=== PATIENT | female | born 1985 | race Caucasian/White ===

== ENCOUNTER 2017-10-06 16:10 | Emergency (ER) | payer OTHER ==
[~2017-10-06] VITALS: Ht 165.1 cm; Wt 83.9 kg
[~2017-10-06 16:10] MED LIST: ACYC800; CIPRSO RIGHTEYE; CLIN15SU PO; CODACE30 PO; CODACEE120 PO; IBUP800 PO; LEVFLO500 PO; NAPR375 PO; ONDA4ODT MM; OXYACE5T PO; PENVK500 PO; PROM25 PO; PROM25S PR; RXTRAM50 PO; TRAM50 PO; Verotin-Gr Cap1 EACH; [UNRECOGNIZED DRUG - MIXTURE]
[2017-10-06] MEDS ORDERED: Polytrim Eye Dr10 ML RIGHTEYE (16:29)
== END 2017-10-06 16:40 | disposition home or self-care (01) ==
LOC: ER 16:10
DX: H10.9 Unspecified conjunctivitis (principal); F17.200 Nicotine dependence, unspecified, uncomplicated
CPT/HCPCS: 99282

== ENCOUNTER 2017-10-31 11:08 | Emergency (ER) | payer OTHER ==
[~2017-10-31] VITALS: Ht 165.1 cm; Wt 83.9 kg
[~2017-10-31 11:08] MED LIST changes: +Polytrim Eye Dr10 ML RIGHTEYE
[2017-10-31] MEDS ORDERED: Amoxil400 MG/5 M PO (12:03)
[2017-10-31] MEDS ORDERED: ALBU90OI INH (12:08)
[2017-10-31] MEDS ORDERED: Prednisolo15 MG/5 ML PO (12:08)
== END 2017-10-31 12:25 | disposition home or self-care (01) ==
LOC: ER 11:08
DX: R09.02 Hypoxemia (principal); R05 Cough
CPT/HCPCS: 71046; 99283; J1100

== ENCOUNTER → 2022-03-22 | Outpatient (CLI) | payer OTHER ==
[~2022-03-22] MED LIST changes: +ALBU90OI INH; +Amoxil400 MG/5 M PO; +Prednisolo15 MG/5 ML PO
[2022-03-23 15:10] LABS: HPV 16 Negative (Negative); HPV 18 Negative (Negative); HPV OTHER HR TYPES Negative (Negative)
== END | disposition home or self-care (01) ==
LOC: LAB 16:57 → LAB SHORT 16:57
PROVIDERS: Nurse Practitioner Family
DX: Z01.419 Encounter for gynecological examination (general) (routine) without abnormal findings (principal)
CPT/HCPCS: 87070; 87205; 87624; G0123